=== PATIENT | female | born 1965 | race Caucasian/White ===

== ENCOUNTER → 2018-01-30 | Day surgery (SDC) | payer OTHER | END | disposition home or self-care (01) | LOC: ADM 01-24 13:00 → AMB-ENDOS 10:00 | DX: D12.0 Benign neoplasm of cecum (principal); D12.2 Benign neoplasm of ascending colon; K64.1 Second degree hemorrhoids ==

== ENCOUNTER 2019-03-30 06:15 | Inpatient (IN) | payer OTHER ==
[~2019-03-30] VITALS: Ht 167.6 cm; Wt 77.1 kg
[~2019-03-30 06:15] MED LIST: BIOTIN10 MG; COMPLEJO B; NAPROXEN500 MG; PROTONIX20 MG; SYNTHROID100 MCG
[2019-03-31] MEDS ORDERED: B COMPLEX1 EACH (08:36)
== END 2019-03-31 14:08 | disposition home or self-care (01) | DRG 621 ==
LOC: CIR.AMB 06:15 → O/R 16:46 → SURH 16:46
PROVIDERS: ADMIT Plastic Surgery
PROC: 0H0V0ZZ Alteration of Bilateral Breast, Open Approach (ICD-10-PCS; 2019-03-30)
PROC: 0J080ZZ Alteration of Abdomen Subcutaneous Tissue and Fascia, Open Approach (ICD-10-PCS; principal; 2019-03-30 07:00)
PROC: 0HX5XZZ Transfer Chest Skin, External Approach (ICD-10-PCS; 2019-03-30 07:00)
DX: E65 Localized adiposity (principal); N62 Hypertrophy of breast; E66.01 Morbid (severe) obesity due to excess calories; M62.08 Separation of muscle (nontraumatic), other site; I10 Essential (primary) hypertension; E03.8 Other specified hypothyroidism

== ENCOUNTER 2020-11-18 07:10 | Outpatient (CLI) | payer OTHER ==
[~2020-11-18 07:10] MED LIST changes: +B COMPLEX1 EACH
== END 2020-11-18 07:20 | disposition home or self-care (01) ==
LOC: RX STUDY 07:10
PROVIDERS: ATTEND Internal Medicine Gastroenterology
DX: R13.10 Dysphagia, unspecified (principal); R11.2 Nausea with vomiting, unspecified

== ENCOUNTER 2022-11-13 07:31 | Outpatient (CLI) | payer OTHER | END 2022-11-13 07:33 | disposition home or self-care (01) | LOC: NUCLEAR 07:31 | PROVIDERS: ATTEND Neuromusculoskeletal Medicine, Sports Medicine | DX: I83.813 Varicose veins of bilateral lower extremities with pain (principal); I70.208 Unspecified atherosclerosis of native arteries of extremities, other extremity ==

== ENCOUNTER 2022-11-14 07:18 | Outpatient (CLI) | payer OTHER | END 2022-11-14 07:20 | disposition home or self-care (01) | LOC: NUCLEAR 07:18 | PROVIDERS: ATTEND Neuromusculoskeletal Medicine, Sports Medicine | DX: I83.813 Varicose veins of bilateral lower extremities with pain (principal); I70.208 Unspecified atherosclerosis of native arteries of extremities, other extremity ==